=== PATIENT | male | born 1985 | race African-American/Black ===

== ENCOUNTER 2024-10-24 19:18 | Emergency (ER) | payer SELFPAY ==
[2024-10-24 19:22] VITALS: BP 150/86
--- NOTE | 2024-10-24 21:00 | ED.GENMED ---
History of Present Illness
General
Chief Complaint: Crisis Evaluation
Source: patient
Exam Limitations: none
Time Seen by Provider: 10/24/24 20:57
History of Present Illness
History of Present Illness:
See MDM
Past History
Past History
ED Past Medical History: None
ED Past Surgical History: Orthopedic (s/p left arm trauma)
Phy Exam
Physical Exam
Physical Exam:
See MDM
Course
Orders/Labs/Results
Orders:
Orders
10/24/24 19:53
Crisis Consult Urgent
Reason for Consult: depression
Vital Signs
Initial and Last Documented VS:
Initial Vital Signs
Temp Pulse Resp BP Pulse Ox
98.2 F 96 20 150/86 96
10/24/24 19:22 10/24/24 19:22 10/24/24 19:22 10/24/24 19:22 10/24/24 19:22
Last Documented Vital Signs
Temp Pulse Resp BP Pulse Ox
98.2 F 96 20 150/86 96
10/24/24 19:22 10/24/24 19:22 10/24/24 19:22 10/24/24 19:22 10/24/24 19:22
MDM/Problems Addressed
Differential Diagnosis Includes:
HPI and MDM Narrative:
39-year-old male presenting to the emergency department for crisis evaluation. Patient states he drank a lot of alcohol at the bar last night and celebration for his birthday. He then got into an argument with his . Patient denies any
suicidal or homicidal thoughts. He states he feels safe at home. Patient does acknowledge that he would benefit from speaking to a therapist. [facility] had already saw him and provided outpatient resources. Patient states he feels very comfortable
going home. On my exam, he does not appear to be in any acute distress or any harm to himself or others. He is goal oriented and well-appearing.
He does admit to mild cough. We discussed decrease vaping. Lungs are clear.
Physical exam
General: Well appearing and non-toxic
HEENT: protecting airway
Neck: appears supple
CV: No evidence of cyanosis. Regular rate and rhythm
Resp: No accessory muscle use. Lungs clear
Abd: Non-distended
Extremities: No deformities
Neuro: alert
Psych: Normal affect
Skin: Intact
Problems Addressed including Acute and Chronic Conditions affecting care:
1. Depression
Acuity: acute
Prognosis: stable
Details: Patient is well-appearing nontoxic and feels comfortable going home with outpatient resources
Differential Diagnosis (but not limited to): Depression, anxiety
Testing considered: Chest x-ray
Drug therapy (if applicable): OTC meds, please see d/c instruction regarding Rx drugs
Amount and/or Complexity of Data Reviewed
Clinical info obtained from: Patient
External data reviewed: N/A
Labs I independently reviewed (but not limited to): N/A
Radiology: N/A
Pulse Ox: not hypoxic
EKG independently reviewed: N/A
Chaser Tar: N/A
Critical Care: N/A
Risk of Complication:
Social Determinants of health: Good social support
Discussed with other providers: N/A
Escalation of Care includes Admit/Obs: After being observed in the Emergency Department, pt stable for discharge.
Occasional wrong word or 'sound a like' substitutions may have occurred due to the inherent limitations of voice recognition software. Read the chart carefully and recognize, using context, where substitutions have occurred.
*Critical Care Note
Total Time (30-74mins, 75-104mins- exclusive of procedures): Not Applicable
ED Attending Note
-
Portions of this chart may have been created with voice recognition software.� Occasional wrong word or��sound alike� substitutions may have occurred due to the inherent limitations of voice recognition software.
Discharge Plan
Departure
Patient Disposition: Home (Routine Discharge)
Date of Disposition: 10/24/24
Time of Disposition: 21:02
Patient with high blood pressure during this ER visit?: Yes
Discharge Problem:
Encounter for screening examination for mental health and behavioral disorders
Instructions: BLOOD PRESSURE
Prescriptions:
No Action
No Current Medications
0
Referrals:
NONE,* [Family Provider] -
Activity Restrictions/Additional Instructions:
Please return for any worsening symptoms.
You may return at any time if you have further concerns.
Please follow up with your doctor at the first available appointment, preferably this week.
Please refer to the handout material in regards to outpatient psychiatric follow-up.
Thank you for choosing [facility].
Interventions
Interventions:
*Risk Screen - Suicide Last Done: 10/24/24 19:27
*General Assessment Last Done: 10/24/24 19:22
*Neglect/Abuse Screening Last Done: 10/24/24 19:27
ED-Psychological Assessment Last Done: 10/24/24 19:56
Discharge Date and Time
Print Language: NEPALI
== END 2024-10-24 21:42 | disposition home or self-care (01) ==
LOC: EMR 19:18
PROVIDERS: EMERGENCY PHYSICIAN Student in an Organized Health Care Education/Training Program
DX: Z13.30 Encounter for screening examination for mental health and behavioral disorders, unspecified (principal); F32.A Depression, unspecified; F17.290 Nicotine dependence, other tobacco product, uncomplicated
CPT/HCPCS: 99283

== ENCOUNTER 2024-11-24 20:56 | Emergency (ER) | payer SELFPAY ==
[2024-11-24 21:00] VITALS: BP 123/98
[2024-11-24 23:57] VITALS: BMI 25.3
[2024-11-25] VITALS: BP 129/91
--- NOTE | 2024-11-25 00:04 | ED.GENMED ---
History of Present Illness
General
Chief Complaint: Anxiety
Source: patient
Exam Limitations: none
Time Seen by Provider: 11/24/24 23:46
Nursing documentation reviewed up to this point in time: agreed with
History of Present Illness
History of Present Illness:
39-year-old male presents emergency department due to anxiety. He is going through a divorce/separation, and is stressed. He was concerned about his blood pressure being elevated. He denies any chest pain or shortness of breath. He denies
suicidal or homicidal ideation.
Past History
Past History
ED Past Medical History: None
ED Past Surgical History: Orthopedic (s/p left arm trauma)
Social History
Tobacco: Smoker
Alcohol: Occasional
Drug: None
Personal:
Review of Systems
Review of Systems
Allergies reviewed?: Yes
All Other Systems: Not applicable
Constitutional: Reports no symptoms
EENT: Reports no symptoms
Respiratory: Reports no symptoms
Cardiac: Reports no symptoms
ABD/GI: Reports no symptoms
: Reports no symptoms
Musculoskeletal: Reports no symptoms
Skin: Reports no symptoms
Neurological: Reports no symptoms
Endocrine: Reports no symptoms
Hematologic/Lymphatic: Reports no symptoms
Psychiatric: Reports anxiety
Phy Exam
Physical Exam
Physical Exam:
Physical Exam
General: no apparent distress, not acutely ill
Neck: supple. no meningeal signs. normal posterior pharynx
Heart: s1/s2 regular rate and rhythm, no murmur. equal radial
pulses.
HEENT: Pupils equal round reactive to light, EOMI
Lungs: no acute respiratory distress. clear bilaterally
Abdomen: normal bowel sounds. not tender. no CVAT
Neuro: alert and oriented. no focal neurological deficits cranial nerves II through XII intact
Skin: no rash
Psychiatric: well kept. interactive and cooperative
Extremities: no edema. no calf tenderness. negative homans. good distal pulses
Course
Vital Signs
Initial and Last Documented VS:
Initial Vital Signs
Temp Pulse Resp BP Pulse Ox
98.2 F 102 20 123/98 99
11/24/24 21:00 11/24/24 21:00 11/24/24 21:00 11/24/24 21:00 11/24/24 21:00
Last Documented Vital Signs
Temp Pulse Resp BP Pulse Ox
98.2 F 102 20 129/91 100
11/24/24 21:00 11/24/24 21:00 11/24/24 21:00 11/25/24 00:00 11/24/24 23:53
MDM/Problems Addressed
Differential Diagnosis Includes:
Anxiety, depression
MDM/Problems Addressed:
39-year-old male with anxiety. No chest pain. Normal exam. Stable for discharge and will go to be seen by Daron vasquez.
*Pulse Oximetry
Patient hypoxic: no
*Critical Care Note
Total Time (30-74mins, 75-104mins- exclusive of procedures): Not Applicable
Patient Management
Social determinants of health affecting care: Living situation
Escalation/DeEscalation of care consider admission/obs:
admit not indicated
ED Attending Note
-
Portions of this chart may have been created with voice recognition software.� Occasional wrong word or��sound alike� substitutions may have occurred due to the inherent limitations of voice recognition software.
Discharge Plan
Departure
Patient Disposition: Home (Routine Discharge)
Date of Disposition: 11/25/24
Time of Disposition: 00:12
Patient with high blood pressure during this ER visit?: Yes
Condition: Good
Discharge Problem:
Anxiety
Instructions: Anxiety, Adult (DC), BLOOD PRESSURE
Prescriptions:
No Action
No Current Medications
0
Interventions
Interventions:
*General Assessment Last Done: 11/24/24 21:00
ED- Fall Risk Assessment Last Done: 11/24/24 23:53
*ED COVID-19 Vaccine History Last Done: 11/24/24 23:57
ED-Psychological Assessment Last Done: 11/24/24 23:53
Discharge Date and Time
Print Language: DANISH
== END 2024-11-25 00:35 | disposition home or self-care (01) ==
LOC: EMR 20:56
PROVIDERS: EMERGENCY PHYSICIAN Emergency Medicine
DX: F41.9 Anxiety disorder, unspecified (principal); R03.0 Elevated blood-pressure reading, without diagnosis of hypertension; Z63.5 Disruption of family by separation and divorce; F17.200 Nicotine dependence, unspecified, uncomplicated
CPT/HCPCS: 99282